=== PATIENT | male | born 1990 | race Caucasian/White ===

== ENCOUNTER 2019-06-06 06:05 | Emergency (ER) | payer OTHER, MEDICAID ==
--- NOTE | 2019-06-06 06:22 | ED Physician Documentation ---
History of Present Illness - Stated complaint Stated Complaint: ARM PX - Chief complaint Chief Complaint: Ext Problem - History obtained from History obtained from: Patient - History of Present Illness Timing: Other (3 months) Pain level now: 10 Improved by: rest Worsened by: palpation, movement - Additonal information Additional information: c/o left wrist pain. He saw PMD for this 3 months ago, diagnosed with DeQuervain's tenosynovitis and rx NSAID and provided with splint. He was steadily improving although pain never completely resolved. It has been steadily worsening x 2 weeks and is now severe. 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 Review of Systems Constitutional: denies: Fever Musculoskeletal: reports: Extremity pain. denies: Extremity swelling Neurologic: denies: Focal weakness, Numbness PD PAST MEDICAL HISTORY - Past Medical History Past Medical History: Yes Cardiovascular: None Respiratory: None Neuro: None Endocrine/Autoimmune: None GI: None : None HEENT: None Psych: Anxiety Musculoskeletal: Chronic back pain, Other Derm: None Other Past Medical History: de quervain tenosynovitis L ARM.. - Past Surgical History Past Surgical History: Yes - Present Medications Home Medications: Ambulatory Orders Medication Instructions Recorded Confirmed Cyclobenzaprine [Flexeril] 10 mg PO TID PRN #20 tablet 12/10/13 HYDROcod/ACETAM 5/325 [Vicodin 1 ea PO Q6H PRN #10 tablet 12/10/13 5/325] Ibuprofen [Advil Migraine] 800 mg PO PRN 12/10/13 12/10/13 traMADol [Ultram] 50 mg PO Q4-6H #30 tablet 12/10/13 oxyCODONE [Roxicodone] 5 - 10 mg PO Q6H PRN #20 tablet 06/06/19 - Allergies Allergies/Adverse Reactions: Allergies Allergy/AdvReac Type Severity Reaction Status Date / Time No Known Drug Allergies Allergy Verified 06/06/19 06:17 - Social History Does the pt smoke?: No Smoking Status: Never smoker Does the pt drink ETOH?: No Does the pt have substance abuse?: Yes - Immunizations Immunizations are current?: No - POLST Patient has POLST: No POLST Status: Full Code PD ED PE NORMAL - Vitals Vital signs reviewed: Yes - General General: Alert and oriented X 3, Well developed/nourished, Other (appears to be in painful distress at times) - Derm Derm: Normal color, Warm and dry, No rash - Extremities Extremities: No deformity, No edema - Neuro Neuro: No motor deficit, No sensory deficit PD ED PE EXPANDED - Extremities Extremities: Other (tenderness along left wrist, radial aspect. limited ROM of left wrist and thumb due to pain (cannot extend thumb nor flex thumb). brisk capillary refill in digits (fingertips) with LTS intact and strong radial pulse) Results - Vitals Vitals: Oxygen O2 Source Room air PD MEDICAL DECISION MAKING - ED course Complexity details: considered differential, d/w patient Departure - Departure Disposition: 01 Home, Self Care Clinical Impression: De Quervain's disease (tenosynovitis) Condition: Good Instructions: ED De Quervain Tenosynovitis Follow-Up: Jacobo Greene MD [Provider Admit Priv/Credential] - Prescriptions: oxyCODONE [Roxicodone] 5 - 10 mg PO Q6H PRN #20 tablet PRN Reason: Pain Forms: Activity restrictions Discharge Date/Time: 06/06/19 08:09
[2019-06-06] MEDS ORDERED: oxyCODONE 5 MG TABLET PO STA (06:37)
--- NOTE | 2019-06-06 07:17 | XRAY Report ---
Reason: left wrist pain Procedure Date: 06/06/2019 Accession Number: [id number] / [id number] Procedure: XR - Wrist 3 View LT CPT Code: FULL RESULT: EXAM: LEFT WRIST RADIOGRAPHY EXAM DATE: 06/06/2019 07:00 AM. CLINICAL HISTORY: Left wrist pain. COMPARISON: None. TECHNIQUE: 4 views. FINDINGS: Bones: Normal. No fractures or bone lesions. Joints: Normal. No subluxations. Soft Tissues: Normal. No soft tissue swelling. IMPRESSION: Normal wrist radiography. [facility]
[2019-06-06] MEDS ORDERED: HYDROmorphone 1 MG/ML CARPUJECT IM STA (07:32)
[2019-06-06 08:09] VITALS: BP 131/96
== END 2019-06-06 08:09 | disposition home or self-care (01) ==
LOC: ED 06:05
DX: M65.4 Radial styloid tenosynovitis [de Quervain] (principal)
CPT/HCPCS: 73110; 96372; 99283; A9270; J1170

== ENCOUNTER 2019-11-12 14:47 | Emergency (ER) | payer MEDICAID, OTHER ==
--- NOTE | 2019-11-12 15:03 | ED Physician Documentation ---
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 No other injuries. He has not tried to walk. Declines pain medication on initial evaluation.) Review of Systems Constitutional: denies: Fever, Chills Throat: reports: Reviewed and negative Cardiac: reports: Reviewed and negative Respiratory: reports: Reviewed and negative PD PAST MEDICAL HISTORY - Past Medical History Cardiovascular: None Respiratory: None Neuro: None Endocrine/Autoimmune: None GI: None : None HEENT: None Psych: Anxiety Musculoskeletal: Chronic back pain, Other Derm: None - Past Surgical History Past Surgical History: Yes - Present Medications Home Medications: Ambulatory Orders Medication Instructions Recorded Confirmed Cyclobenzaprine [Flexeril] 10 mg PO TID PRN #20 tablet 12/10/13 HYDROcod/ACETAM 5/325 [Vicodin 1 ea PO Q6H PRN #10 tablet 12/10/13 5/325] Ibuprofen [Advil Migraine] 800 mg PO PRN 12/10/13 12/10/13 traMADol [Ultram] 50 mg PO Q4-6H #30 tablet 12/10/13 oxyCODONE [Roxicodone] 5 - 10 mg PO Q6H PRN #20 tablet 06/06/19 - Allergies Allergies/Adverse Reactions: Allergies Allergy/AdvReac Type Severity Reaction Status Date / Time No Known Drug Allergies Allergy Verified 11/12/19 14:52 - Social History Does the pt smoke?: No Smoking Status: Never smoker Does the pt drink ETOH?: No Does the pt have substance abuse?: Yes - Immunizations Immunizations are current?: No - POLST Patient has POLST: No POLST Status: Full Code PD ED PE NORMAL - Vitals Vital signs reviewed: Yes - General General: Alert and oriented X 3, No acute distress - Extremities Extremities: Other (Tender and swollen over the first and second metatarsals dorsally of the left foot without deformity or limited range of motion.) - Neuro Neuro: Alert and oriented X 3, Normal speech Results - Vitals Vitals: Vital Signs - 24 hr 11/12/19 11/12/19 14:53 15:18 Temperature 36.7 C 36.9 C Heart Rate 102 H 97 Respiratory 14 16 Rate Blood Pressure 180/100 H 169/95 H O2 Saturation 99 95 Oxygen O2 Source Room air - Rads (name of study) L foot 3v Radiology: EMP read contemporaneously (no frx) Departure - Departure Disposition: 01 Home, Self Care Clinical Impression: Crushing injury of foot, left Qualifiers: Encounter type: initial encounter Qualified Code(s): S97.82XA - Crushing injury of left foot, initial encounter Condition: Good Record reviewed to determine appropriate education?: Yes Instructions: ED Contusion Foot Comments: He may walk and bear weight as tolerated, ibuprofen as needed for pain. Take it easy for a few days ice and elevate. Return as needed.
[2019-11-12 15:20] VITALS: BP 169/95
--- NOTE | 2019-11-12 15:29 | XRAY Report ---
Reason: foot inj Procedure Date: 11/12/2019 Accession Number: [id number] / [id number] Procedure: XR - Foot 3 View LT CPT Code: Final Report FULL RESULT: EXAM: LEFT FOOT RADIOGRAPHY EXAM DATE: 11/12/2019 03:18 PM. CLINICAL HISTORY: Foot trauma, pain COMPARISON: None. TECHNIQUE: 3 views. FINDINGS: Bones: No fracture or focal bony lesion. Joints: No evidence of dislocation. Soft Tissues: There is dorsal forefoot soft tissue swelling. IMPRESSION: No evidence of fracture or dislocation. [facility]
== END 2019-11-12 15:51 | disposition home or self-care (01) ==
LOC: ED 14:47
DX: S97.82XA Crushing injury of left foot, initial encounter (principal); W20.8XXA Other cause of strike by thrown, projected or falling object, initial encounter; Y93.H2 Activity, gardening and landscaping; Y99.0 Civilian activity done for income or pay
CPT/HCPCS: 1040M; 73630; 99283